=== PATIENT | male | born 1970 | race Caucasian/White ===

== ENCOUNTER → 2018-03-23 07:55 | Outpatient (CLI) | payer OTHER, SELFPAY ==
--- NOTE | 2018-03-23 08:09 | CI_ITS ---
Cerebrovascular Exam Indications: 785.9 Bruit. 780.4 Dizziness and giddiness. IMPRESSIONS 1. The bilateral vertebral arteries are patent with normal antegrade flow. 2. Study suggests 20-49% stenosis involving the right internal carotid artery and the left internal carotid artery, lower end of scale. Carotid duplex study. Complete study and Doppler flow study including spectral analysis, color and palmer scale imaging. Height: Height: 180.3cm. Height: 71in. Weight: Weight: 81.6kg. Weight: 179.6lb. Body mass index: BMI: 25.1kg/m^2. Body surface area: BSA: 2.03m^2. Location: Vascular laboratory. Patient status: Outpatient. Incidental findings: A thyroid cyst in the right lobe is noted incidentally. A thyroid cyst in the left lobe is noted incidentally. Tables: Arterial flow: + +--------+--------+ Location V sys V ed + +--------+--------+ Right CCA - proximal 109cm/s 37.7cm/s + +--------+--------+ Right CCA - distal 88cm/s 36.9cm/s + +--------+--------+ Right ECA 95.1cm/s -------- + +--------+--------+ Right ICA - proximal 85.5cm/s 36.4cm/s + +--------+--------+ Right ICA - mid 91cm/s 41.4cm/s + +--------+--------+ Right ICA - distal 104cm/s 49.1cm/s + +--------+--------+ Right vertebral 55.8cm/s -------- + +--------+--------+ Left CCA - proximal 128cm/s 32.1cm/s + +--------+--------+ Left CCA - distal 132cm/s 35.8cm/s + +--------+--------+ Left ECA 103cm/s -------- + +--------+--------+ Left ICA - proximal 104cm/s 45.4cm/s + +--------+--------+ Left ICA - mid 97.1cm/s 39.1cm/s + +--------+--------+ Left ICA - distal 84.5cm/s 37cm/s + +--------+--------+ Left vertebral 57.2cm/s -------- + +--------+--------+ Velocity ratios: + + + + + + Right, V sys Right, V ed Left, V sys Left, V ed + + + + + + Max ICA/dist CCA 1.18 1.33 0.79 1.27 + + + + + + (Report amended ) Electronically signed by: Dwight Crain [id number]
== END ==
LOC: RT 07:56
PROVIDERS: Family Provider Family Medicine; PCP Family Medicine; Visit Provider Emergency Medicine
DX: R09.89 Other specified symptoms and signs involving the circulatory and respiratory systems (principal)
CPT/HCPCS: 93880

== ENCOUNTER → 2018-11-05 06:29 | Outpatient (CLI) | payer OTHER, SELFPAY ==
--- NOTE | 2018-11-05 06:33 | NM_ITS ---
History and Indications: Hyperlipidemia, tobacco use, family history shortness of breath and fatigue Procedure: Patient exercised on Keagan protocol 11 minutes and 30 seconds, resting heart rate was 68 bpm resting blood pressure 135/79, with exercise maximum heart rate achieved was 1 68 bpm which is greater than 85% of the maximum predicted heart rate and a blood pressure was 175/80. Test was stopped due to shortness of breath patient denied any complained of chest pain. Patient has good exercise capacity achieved 12.8mets of workload on treadmill, the blood pressure response to exercise was adequate. Electrocardiogram: Resting electrocardiogram shows sinus rhythm right bundle branch block, with exercise there is less than 1.[address] segment depression noted from the baseline EKG. The EKG portion of the exercise Myoview is negative for ischemia. Cardiac stress and resting SPECT images: Cardiac stress and resting SPECT images were obtained using technetium 99 Myoview 32.6 mCi at stress than 10.5 mCi at rest. Gated SPECT further analysis of segmental wall motion and calculation of the ejection fraction also done. Cardiac stress and the suspect images show mild fixed defect in the inferior wall with normal contractility gated SPECT is likely secondary to soft tissue attenuation, no reversible ischemia seen. Computer derived ejection fraction is 52% with no regional wall motion abnormality, right ventricle is mildly enlarged with normal contractility. Conclusion: 1. The EKG portion of the exercise Myoview is negative for ischemia, patient has good exercise capacity achieved 12.8mets of workload on treadmill, the blood pressure response to exercise was adequate, there was no exercise-induced chest discomfort. Test was stopped due to shortness of breath 2. No scintigraphic evidence of reversible ischemia seen at this level of exercise, computer derived ejection fraction is 52% with no regional wall motion abnormality, right ventricle is mildly enlarged with normal contractility.
--- NOTE | 2018-11-05 06:33 | CA_ITS ---
PROCEDURE: 2-D M-mode and color Doppler study INDICATIONS FOR THE TEST: Chest pain COPD Heart Murmur Tobacco Smoking+ Palpitations Fatigue Syncope Edema Hypertension Diabetes Mellitus Rheumatic Fever SOB MOON+Obesity Hyperlipidemia Family History HD+ Additional History rita PATIENT INFORMATION HEIGHT: 70 WEIGHT:180 GENDER: Male B/P:111/76 2-D/M-MODE INTERPRETATION: 2-D MEASUREMENTS OBSERVED VALUES IN CMS Right Ventricular Dimension (RVDd) 2.4 Interventricular Septum (Thickness)(IVsd) 1.0 Left Ventricular Internal Dimensions(LVIDd) 4.6 Left Ventricular Posterior Wall (Thickness)(LVPWd) 0.9 Aortic Root 2.9 Aortic Cusp Separation 1.8 Left Atrial Dimensions (LAD) 3.3 2D 1. Left atrium is normal size, left ventricle is normal size, there is no concentric left ventricular hypertrophy, visually estimated ejection fraction 55% with no regional wall motion abnormality. 2. Right atrium and right ventricle are normal size and contractility. 3. The intra-atrial septum is mobile consistent with atrial septal aneurysm. 4. The aortic valve is minimally thickened and fibrosed. 5. The mitral and tricuspid valvular grossly normal. 6. The pulmonic valve is poorly visualized. 7. No significant pericardial effusion noted. DOPPLER INTERROGATION: Doppler interrogation of the aortic, mitral and tricuspid valvular presence of mild mitral and tricuspid regurgitation, tricuspid regurgitation jet velocity is inadequate for calculation of the right ventricular systolic pressure, there is no flow across the intra-atrial septum. Diastolic parameters are inconclusive CONCLUSION: 1. Normal left ventricular size, preserved left ventricular systolic function, visually estimated ejection fraction 55% with no regional wall motion abnormality, diastolic parameters are inconclusive. 2. Mobile intra-atrial septum consistent with atrial septal aneurysm, there is no flow across the intra-atrial septum. 3. Mild mitral and tricuspid regurgitation 4. No significant pericardial effusion noted.
== END ==
PROVIDERS: PCP Family Medicine; Visit Provider Internal Medicine
DX: R94.31 Abnormal electrocardiogram [ECG] [EKG] (principal); I45.2 Bifascicular block; I65.23 Occlusion and stenosis of bilateral carotid arteries; R06.09 Other forms of dyspnea; R42 Dizziness and giddiness; R53.83 Other fatigue; Z82.49 Family history of ischemic heart disease and other diseases of the circulatory system; F17.200 Nicotine dependence, unspecified, uncomplicated
CPT/HCPCS: 78452; 93017; 93306; A9502

== ENCOUNTER → 2018-11-29 14:50 | Outpatient (CLI) | payer OTHER, SELFPAY ==
[2018-11-29 15:45] VITALS: PULSE 69; PULSE 72
== END ==
PROVIDERS: PCP Family Medicine; Visit Provider Nurse Practitioner Family
DX: R06.09 Other forms of dyspnea (principal); R42 Dizziness and giddiness; I65.23 Occlusion and stenosis of bilateral carotid arteries; R94.31 Abnormal electrocardiogram [ECG] [EKG]; I45.2 Bifascicular block; E78.2 Mixed hyperlipidemia; R06.83 Snoring; R40.0 Somnolence; F17.200 Nicotine dependence, unspecified, uncomplicated; Z85.49 Personal history of malignant neoplasm of other male genital organs
CPT/HCPCS: 94060; 94640; 94726; 94729

== ENCOUNTER → 2018-11-30 13:24 | Outpatient (CLI) | payer OTHER, SELFPAY | PROVIDERS: PCP Family Medicine; Visit Provider Nurse Practitioner Family | DX: R06.09 Other forms of dyspnea (principal); R06.83 Snoring; R40.0 Somnolence; E78.2 Mixed hyperlipidemia; I45.2 Bifascicular block; I65.23 Occlusion and stenosis of bilateral carotid arteries; R42 Dizziness and giddiness; R94.31 Abnormal electrocardiogram [ECG] [EKG]; Z82.49 Family history of ischemic heart disease and other diseases of the circulatory system; F17.200 Nicotine dependence, unspecified, uncomplicated; G47.33 Obstructive sleep apnea (adult) (pediatric) | CPT/HCPCS: 95806 ==

== ENCOUNTER 2021-11-18 16:32 | Emergency (ER) | payer OTHER, SELFPAY ==
[2021-11-18 18:30] VITALS: BP 125/79; PULSE 75; RESP 18; TEMP 37; O2SAT 98; BMI 23.7
[2021-11-18 18:54] VITALS: BP 125/79; PULSE 75; RESP 18; TEMP 37; O2SAT 98
--- NOTE | 2021-11-18 18:59 | HMH.EDUTC ---
[facility] [place] Clinical Impression: Encounter for laboratory testing for COVID-19 virus Disposition: Home, Self-Care Condition on Discharge: Good Instructions: DI for COVID-19 (Suspected or Confirmed ) Additional Instructions: *Monitor Temp, Over the counter Motrin or Tylenol as directed/as needed Tylenol every 4 hours and Motrin every 6 hours (as long as your family doctor has told you that you can take it) for fever or pain. and straight to ER if unable to lower temp less than 101.0 after medication given Follow up IMMEDIATELY for new or worsening symptoms or no Noticeable improvement over the next 48-72 hours. 911 for difficulty breathing or swallowing You were tested for today for COVID19 your test result should be back in the next 24-48 hours, you may check your results on the [facility] My Health Portal Make sure to take your Vitamins Vit. C Vit D and Zinc if you can take them Referrals: Nate Francisco MD [Primary Care Provider] - As needed Time of Disposition: 18:59 Medical Decision Making - Rodrick Inquiry Pt receiving controlled substance: No Rodrick was queried for this patient: No Vital Signs: 11/18/21 18:30 11/18/21 18:54 Temperature 98.6 F 98.6 F Temperature Source Oral Pulse Rate 75 Pulse Rate [Left Brachial] 75 Respiratory Rate 18 18 Blood Pressure 125/79 Blood Pressure [Left Arm] 125/79 Blood Pressure Mean [Left Arm] 94 Blood Pressure Source [Left Arm] Automatic Cuff Blood Pressure Position [Left Arm] Sitting 02 Sat by Pulse Oximetry 98 Oxygen Delivery Method Room Air Orders (Tests/Meds): ORDERS Category Date Time Status Covid-19 Nasal PCR ([facility]) Routine Lab 11/18/21 18:30 [place]ceived [facility] [place] - General Stated complaint: covid test Time Seen by Provider: 11/18/21 18:59 Mode of Arrival: Ambulatory Source of Information: Patient Limitations: No Limitations Description of Symptoms (Recalled from Triage Doc. by RN): PATIENT NEEDING COVID TEST TO STAY AT [facility] Symptoms (Recalled from RN notes): No Resp Symptoms (Recalled from RN notes): No Skin Symptoms (Recalled from RN notes): No MS Symptoms (Recalled from RN notes): No Functional Status (Recalled from RN notes): WNL - History of Present Illness Provider Complaint: Patient states that son has to have Chemo and they stay at the [facility] and he has to have a negative COIVD test before he can go and stay - Related Data Previous Rx's Medication Instructions Recorded cephalexin 500 mg capsule 500 mg PO Q12H 10 Days #20 cap 09/25/19 fluticasone propionate 50 1 spray INTRANASAL QDAY #9.9 ml 09/25/19 mcg/actuation nasal spray,suspension prednisone 20 mg tablet 20 mg PO BID #10 tab 09/25/19 Allergies Allergy/AdvReac Type Severity Reaction Status Date / Time lactose Allergy Mild Verified 09/25/19 10:55 MILK Allergy Unknown NA-NAUSEA Uncoded 11/24/18 13:27 - Worker's Comp Is this a Worker's Comp case?: No [facility] History - Hepatitis A Screen Drug use history?: No High risk sexual behaviors?: No History of sexually transmitted infection?: No Currently employed?: No Childcare worker?: No Do you have indoor plumbing?: Yes Do you have electricity?: Yes Attestation statement:: This patient has been screened for Hepatitis A risk factors. I have reviewed the patient's past medical history: Yes Medical History: Reports:: Carotid Stenosis, Heart Murmur Other Surgeries: Yes: EGD, Other Amputation: No Fractures: No Comment: Vasectomy - Social History Smoking Status: Current every day smoker Tobacco Type: cigarettes # Packs/Day (cigarettes): 1 #Yrs smoked (if former smoker): 20 Alcohol Intake: current Alcohol Intake Frequency:: holidays/special occasions only Substance Use Type: denies use Occupational Status: employed Housing: house Household Members: spouse, children Family Hx:: Heart Attack, Hypertension, Coronary Artery Disease, Cancer Comment: [email or web address]. Pater
== END 2021-11-18 19:03 | disposition home or self-care (01) ==
PROVIDERS: Emergency Provider Nurse Practitioner; PCP Family Medicine
DX: I65.29 Occlusion and stenosis of unspecified carotid artery (principal); F17.210 Nicotine dependence, cigarettes, uncomplicated; Z20.822 Contact with and (suspected) exposure to COVID-19; Z03.89 Encounter for observation for other suspected diseases and conditions ruled out; Z79.51 Long term (current) use of inhaled steroids; Z91.011 Allergy to milk products; Z82.49 Family history of ischemic heart disease and other diseases of the circulatory system; Z80.9 Family history of malignant neoplasm, unspecified
CPT/HCPCS: 99213; C9803; G0463; U0003; U0005

== ENCOUNTER → 2022-01-06 09:38 | Outpatient (CLI) | payer OTHER, SELFPAY ==
[2022-01-06 09:48] LABS: MANUAL DIFFERENTIAL MANUAL DIFFERENTIAL (MANUAL DIFF)
[2022-01-06 10:03] LABS: Basophils # 0.1 K/mm3 (0-0.2); Basophils % 1.2 % (0.1-2.0); Eosinophils # 0.2 K/mm3 (0.0-0.4); Eosinophils % 3.4 % (0.1-12.0); Hematocrit 51.6 % (42.0-52.0); Hemoglobin 17.3 g/dL (14.1-18.0); Lymphocytes # 1.5 K/mm3 (0.7-4.5); Lymphocytes % 23.6 % (10-50); Mean Corpuscular HGB Conc 33.6 g/dL (31.8-35.4); Mean Corpuscular Hemoglobin 31.3 pg (27.0-31.2); Mean Platelet Volume 7.9 fl (7.4-10.4); Monocytes # 0.4 K/mm3 (0.1-1.0); Neutrophils # 4.2 K/mm3 (1.8-7.8); Neutrophils % 65.9 % (37.0-80.0); Platelet Count 230 K/mm3 (142-424); Red Blood Count 5.55 M/mm3 (4.60-6.20); Red Cell Distribution Width 13.9 % (11.5-17.5); White Blood Count 6.4 K/mm3 (4.8-10.8)
[2022-01-06 10:48] LABS: Chloride 103 mmol/L (98-107); Eosinophils % 5 % (0-3); Lymphocytes % 19 % (10-50); Monocytes % 5 % (2-9); Neutrophils % 71 % (42-76); Potassium 3.9 mmoL/L (3.5-5.1); Sodium 140 mmol/L (136-145); Total Cells Counted 100
[2022-01-06 10:49] LABS: Platelet Estimate Normal
[2022-01-06 10:50] LABS: Alanine Aminotransferase 18 U/L (12-78); Aspartate Amino Transferase 22 U/L (17-59); Blood Urea Nitrogen 16 mg/dl (9-20); Estimated Glomerular Filt Rate 89 ml/min (>60); GFR (African American) 108 ML/MIN (>60); RBC Morphology Normal
[2022-01-06 10:51] LABS: Albumin Level 4.4 g/dl (3.5-5.0); Albumin/Globulin Ratio 1.7 (1.1-1.8); Alkaline Phosphatase 57 U/L (38-126); Anion Gap 8.9 mEq/L (5-15); Bilirubin,Total 0.7 mg/dl (0.2-1.3); Calcium 9.8 mg/dl (8.4-10.2); Carbon Dioxide 32 mmol/L (22.0-30.0); Globulin 2.6 g/dL (1.3-3.2); Glucose 102 mg/dl (74-100)
== END ==
PROVIDERS: Visit Provider Otolaryngology
DX: L72.0 Epidermal cyst (principal); L02.91 Cutaneous abscess, unspecified; Z01.812 Encounter for preprocedural laboratory examination; Z11.52 Encounter for screening for COVID-19
CPT/HCPCS: 36415; 80053; 85007; 85014; 85018; 85048; 85049; C9803; U0003; U0005

== ENCOUNTER 2022-01-07 06:00 | Day surgery (SDC) | payer OTHER, SELFPAY ==
[2022-01-06 10:59] VITALS: BMI 23.0
[2022-01-07 06:21] VITALS: BP 120/83; PULSE 73; RESP 18; TEMP 36.2; O2SAT 96
--- NOTE | 2022-01-07 06:27 | ECG_ITS ---
APPROVED REPORT Exam: Resting ECG HR:71 bpm ECG Measurements Heart Rate 71 AXES MN 168 P 74 QRSd 138 QRS 262 QT 403 T 44 QTc 425 Conclusion SINUS RHYTHM RIGHT ATRIAL ENLARGEMENT [0.3mV P-WAVE] LEFT ATRIAL ENLARGEMENT [-0.15mV P-WAVE IN V1/V2] RIGHT AXIS DEVIATION [QRS AXIS > 100] RIGHT BUNDLE BRANCH BLOCK [120+ ms QRS DURATION, UPRIGHT V1, 40+ ms S IN I/aVL/V4/V5/V6] ABNORMAL ECG UNCONFIRMED REPORT Electronically signed by : Farzad Rogers MD 01/07/2022 21:26:13
--- NOTE | 2022-01-07 07:32 | HMH.ANESCL ---
[facility] Anesthesia Checklist - Patient Identification Patient Identification: Arm Band - Structural Data Admitted From: Home Planned Operative Procedure/s: Excision of neck lesion Consent for Planned Operative Procedure(s) Verified: Yes Verified Documents: Surgical Consent - NPO Status Verified Time NPO: 00:00 - Additional verifications Anesthesia Reactions: No Hx Blood Transfusions: No Blood Transfusion Reaction: No - Airway Assessment C-Spine Mobility Assessed: Yes TMJ Mobility Assessed: Yes Dentition: Good Dentition - Neurological Assessment Level of Consciousness: Awake, Alert, Appropriate - Anesthesia Plan Anesthesia Risk discussed: Yes ASA Class: II Anesthesia Type: MAC [facility] History I have reviewed the patient's past medical history: Yes Medical History: Reports:: Carotid Stenosis, Heart Murmur Denies:: Cancer, Diabetes Mellitus Type 1, Diabetes Mellitus Type 2, Internal Pacemaker, MRSA, Seizures *Have you ever received a pneumonia vaccine?: No *Have you received a flu vaccine this season?: Yes Other Medical History: Denies: Blood Transfusion Reaction Anesthesia experience/problems:: none Other Surgeries: Yes: EGD, Other. No: Pacemaker Amputation: No Fractures: No - *Social History Last grade of school completed: Advanced degree Smoking Status: Current every day smoker Tobacco Type: cigarettes # Packs/Day (cigarettes): 1 #Yrs smoked (if former smoker): 20 Alcohol Intake: never Alcohol Intake Frequency:: holidays/special occasions only Substance Use Type: denies use *Occupational Status:: employed Housing: house Household Members: spouse *Travel in the last 8 weeks: None Family Hx:: Heart Attack, Hypertension, Coronary Artery Disease, Cancer
--- NOTE | 2022-01-07 08:29 | HMH.OPNOTE ---
Date of procedure: 01/07/22 Pre-op Diagnosis:: Left neck epidermal inclusion cyst Post-op Diagnosis:: Left neck epidermal inclusion cyst Procedure performed:: Excision left neck epidermal inclusion cyst and multilayer closure Surgeon:: Rogelio Ramírez MD CABLE INSTALLATION MANAGER:: Other Anesthesia: MAC Estimated blood loss (mL): 0 Operative findings:: Small uninfected epidermal inclusion cyst with surrounding scarring and fibrosis Operative note:: The patient was placed supine in the operating room and after adequate IV sedation 1% lidocaine with epinephrine was used to locally infiltrate a skin fold surrounding the palpable indurated area at the inferior border of the mandible on the left side and then the neck was prepped and draped in the usual sterile fashion. The scar and indurated area was elliptically excised down to the underlying fascia of the platysma and then hemostasis established with bipolar cautery. Closure was then performed with 4-0 Vicryl to reapproximate the deep layer and 5-0 nylon to reapproximate the skin edges. A sterile dressing was placed and the procedure concluded. All counts correct. Blood loss 0. Patient was sent to recovery in stable condition. Condition: stable Disposition: PACU Complications:: None
[2022-01-07 08:31] VITALS: BP 107/65; PULSE 79; RESP 16; TEMP 36.5; O2SAT 91
[2022-01-07 08:41] VITALS: BP 96/72; PULSE 74; RESP 16; O2SAT 91
[2022-01-07 08:51] VITALS: BP 104/73; PULSE 71; RESP 16; O2SAT 93
[2022-01-07 09:01] VITALS: BP 104/78; PULSE 77; RESP 16; TEMP 36.5; O2SAT 94
== END 2022-01-07 09:10 | disposition home or self-care (01) ==
LOC: OR 06:01
PROVIDERS: PCP Family Medicine; Visit Provider Otolaryngology
PROC: (CPT 11442; principal; 2022-01-07 07:30)
DX: L72.0 Epidermal cyst (principal); I65.29 Occlusion and stenosis of unspecified carotid artery; R01.1 Cardiac murmur, unspecified; Z72.0 Tobacco use; Z82.3 Family history of stroke; Z82.49 Family history of ischemic heart disease and other diseases of the circulatory system; Z80.9 Family history of malignant neoplasm, unspecified
CPT/HCPCS: 11442; 12051; 93005; 96374; J2405

== ENCOUNTER → 2023-07-21 08:40 | Outpatient (CLI) | payer OTHER, SELFPAY ==
[2023-07-21 17:10] LABS: Influenza A, PCR Not Detected (NotDetected); Influenza B, PCR Not Detected (NotDetected)
[2023-07-21 19:00] LABS: Coronavirus 19, PCR Detected (NotDetected)
== END ==
LOC: LAB.DROPOF 07-22 08:41
PROVIDERS: PCP Family Medicine; Visit Provider Nurse Practitioner Family
DX: J06.9 Acute upper respiratory infection, unspecified (principal); U07.1 COVID-19; R05.9 Cough, unspecified; R09.81 Nasal congestion
CPT/HCPCS: 87636

== ENCOUNTER 2024-01-18 18:39 | Emergency (ER) | payer OTHER, SELFPAY ==
[2024-01-18 18:50] VITALS: BP 115/78; PULSE 82; RESP 18; TEMP 36.6; O2SAT 100; BMI 23.7
--- NOTE | 2024-01-18 19:02 | EXP.UTC ---
Discharge Plan Disposition Patient Disposition: Home, Self-Care Condition: Good Prescriptions Prescriptions: New amoxicillin-pot clavulanate 875-125 mg Tablet 1 tab PO Q12H 7 Days Qty: 14 0RF Referrals Follow up/Referrals: John Pulliam MD [Primary Care Provider] - See instructions Activity Restrictions/Add. Instructions Additional Instructions/Restrictions: Take medication as prescribed Keep wound area clean and dry, clean with antibacterial soap and water Follow up with your Family Doctor if no improvement or any worsening of redness or swelling Straight to ER if any life threatening symptoms Clinical Impressions Clinical Impression: Cat bite Instructions Patient Instructions: DI for Cat Bite, DI for Animal Bites, Amoxicillin and Clavulanic Acid Discharge ED Provider: Melanie Chicas [facility] General Stated complaint: AO 01/16, left hand pain Mode of Arrival: Ambulatory Source of Information: Patient Limitations: No Limitations Time Seen by Provider: 01/18/24 19:02 Description of Symptoms (Recalled from Triage Doc. by RN): PATIENT C/O CAT BITE TO LEFT HAND ON THURSDAY HEENT Symptoms (Recalled from RN notes): No Resp Symptoms (Recalled from RN notes): No Skin Symptoms (Recalled from RN notes): Yes MS Symptoms (Recalled from RN notes): No Functional Status (Recalled from RN notes): WNL History of Present Illness Provider Complaint: Patient states that he reached down and picked up his brothers cat and the cat bite him on the top of his left hand twice States that bite happened on Thursday and now it is looking red and warm thinks it may be infected and not sure when his last tetanus shot was so he came in Related Data Previous Rx's Medication Instructions Recorded amoxicillin 875 mg-potassium 1 tab PO Q12H 7 days #14 tabs 01/18/24 clavulanate 125 mg tablet Allergies Allergy/AdvReac Type Severity Reaction Status Date / Time lactose Allergy Mild Verified 07/21/23 15:55 MILK Allergy Unknown NA-NAUSEA Uncoded 07/21/23 15:55 Worker's Comp Is this a Worker's Comp case?: No [facility] Disclaimer: The information contained in this section may have been updated after the patient was seen, as this information can be updated by other users. Medical History (Updated 01/18/24 @ 19:14 by Melanie Chicas APRN) COPD (chronic obstructive pulmonary disease) Upper respiratory virus Gastric ulcer Encounter for laboratory testing for COVID-19 virus Dizziness Surgical History (Updated 07/21/23 @ 15:56 by Cheryl Rodriguez LPN) History of endoscopy Social History (Updated 07/21/23 @ 15:56 by Cheryl Rodriguez LPN) Smoking Status: Current every day smoker tobacco type: cigarettes packs per day: 1 alcohol intake: current alcohol intake frequency: a few times a month substance use type: denies use current occupational status: employed Travel in the last 8 weeks: None household members: spouse housing: house current occupation: [employer] current occupational exposures/hazards: No caffeine: Yes ROS Obtained: Yes All systems reviewed & no additional complaints except as documented and Yes Systems reviewed as appropriate & no additional complaints except as documented Constitutional Constitutional: Reports system reviewed and no additional complaints, except as documented and Reports as per HPI ENT Ears, Nose, Mouth, and Throat: Reports system reviewed and no additional complaints, except as documented and Reports as per HPI Cardiovascular Cardiovascular: Reports system reviewed and no additional complaints, except as documented and Reports as per HPI Respiratory Respiratory: Reports system reviewed and no additional complaints, except as documented and Reports as per HPI Gastrointestinal Gastrointestingal: Reports system reviewed and no additional complaints, except as documented and as per HPI Musculoskeletal Musculoskeletal: Reports system reviewed and no additional complaints, except as documented and Reports as per HPI Integumentary/Breasts Skin/Breast: Reports system reviewed and no additional complaints, except as documented, Reports as per HPI and Reports other Comments: cat bite to top of left hand Physical Exam General General appearance: alert and in no apparent distress ENT ENT exam: Present mucous membranes moist Respiratory Respiratory exam: Present normal lung sounds bilaterally; Absent respiratory distress or wheezes Cardiovascular Cardiovascular exam: Present regular rate, normal rhythm and normal heart sounds Expanded Upper Extremity Exam Left: Hand L/R back image: 1. two puncture wounds noted with surrounding redness, no drainage mild swelling from cat bite Neurological Exam Neurological exam: Present alert, oriented X3 and normal gait Medical Decision Making Rodrick Inquiry Pt receiving controlled substance: No Rodrick was queried for this patient: No Vital Signs: 01/18/24 18:50 Temperature 97.9 F Temperature Source Oral Pulse Rate [Right Brachial] 82 Respiratory Rate 18 Blood Pressure [Right Arm] 115/78 Blood Pressure Mean [Right Arm] 90 Blood Pressure Source [Right Arm] Automatic Cuff Blood Pressure Position [Right Arm] Sitting 02 Sat by Pulse Oximetry 100 Oxygen Delivery Method Room Air
[2024-01-18] MEDS: TET/DIPHTH/PERT-ADULT 0.5ML SYRINGE 0.5 ML IM (19:20)
[2024-01-18] MEDS: AMOXICILLIN/POT CLAVULAN 500MG TABLET 1 EACH PO (19:20)
[2024-01-18 19:23] VITALS: BP 115/78; PULSE 82; RESP 18; TEMP 36.6; O2SAT 100
== END 2024-01-18 19:30 | disposition home or self-care (01) ==
PROVIDERS: Emergency Provider Nurse Practitioner; PCP Family Medicine
DX: S61.432A Puncture wound without foreign body of left hand, initial encounter (principal); W55.01XA Bitten by cat, initial encounter; Z23 Encounter for immunization
CPT/HCPCS: 90471; 90715; 99212; 99214; G0463